=== PATIENT | female | born 1980 | race Asian ===

== ENCOUNTER → 2017-01-03 | Outpatient (CLI) | payer OTHER | LOC: BMCIMAGING 14:37 | PROVIDERS: ATTEND Internal Medicine Endocrinology, Diabetes & Metabolism | DX: Z13.820 Encounter for screening for osteoporosis (principal); M85.80 Other specified disorders of bone density and structure, unspecified site; S42.001A Fracture of unspecified part of right clavicle, initial encounter for closed fracture ==